=== PATIENT | male | born 2000 | race American Indian/Alaskan Native ===

== ENCOUNTER 2019-03-19 17:11 | Emergency (ER) | payer SELFPAY ==
--- NOTE | 2019-03-19 17:39 | Emergency Department Report ---
Blank Doc - Documentation Documentation: pt states he is not circumcised and states he had a ripping sensation that occ urred a month ago states he has noticed blood occurred during intercourse no dysuria no penile discharge no testicular pain no testicular edema no PMHx no allergies to medications non smoker non drinker no drug use
[2019-03-19 18:59] LABS: Bilirubin,Urine NEG (Negative); Blood,Urine NEG (Negative); Color,Urine Yellow (Yellow); Mucus,Urine 2+ /HPF; Protein,Urine <15 mg/dL mg/dL (Negative); Urobilinogen,Urine < 2.0 mg/dL (<2.0)
--- NOTE | 2019-03-19 21:36 | Emergency Department Report ---
ED General Adult HPI - General Chief complaint: Recheck/Abnormal Lab/Rx Stated complaint: GENTIAL PROBLEMS Time Seen by Provider: 03/19/19 17:35 Source: patient Mode of arrival: Ambulatory Limitations: No Limitations - History of Present Illness Initial comments: 19-year-old -[place] male to emergency department complaining of a possible in contact with the female stated that she had herpes. He noticed a tearing to his penile region which she would like to have looked at because he thinks it could be a herpes lesion. Also would like some information on where he can go to get circumcised. He denies any penile discharge. Reports no testicular swelling or pain. No abdominal pain Radiation: non-radiation Improves with: none Worsens with: none - Related Data Allergies Allergy/AdvReac Type Severity Reaction Status Date / Time No Known Allergies Allergy Unverified 03/19/19 17:12 ED Review of Systems ROS: Stated complaint: GENTIAL PROBLEMS Other details as noted in HPI Constitutional: denies: chills, fever Eyes: denies: eye pain, eye discharge, vision change ENT: denies: ear pain, throat pain Respiratory: denies: cough, shortness of breath, wheezing Cardiovascular: denies: chest pain, palpitations Endocrine: no symptoms reported Gastrointestinal: denies: abdominal pain, nausea, diarrhea Genitourinary: denies: urgency, dysuria, frequency, discharge, testicular pain, testicular mass Musculoskeletal: denies: back pain, joint swelling, arthralgia Skin: denies: rash, lesions Neurological: denies: headache, weakness, paresthesias Psychiatric: denies: anxiety, depression Hematological/Lymphatic: denies: easy bleeding, easy bruising ED Past Medical Hx - Past Medical History Previous Medical History?: No - Surgical History Past Surgical History?: No - Social History Smoking Status: Never Smoker Substance Use Type: None ED Physical Exam - General Limitations: No Limitations General appearance: alert, in no apparent distress - Head Head exam: Present: atraumatic, normocephalic - Eye Eye exam: Present: normal appearance, PERRL, EOMI. Absent: scleral icterus, conjunctival injection, periorbital swelling Pupils: Present: normal accommodation - ENT ENT exam: Present: normal exam, mucous membranes moist - Neck Neck exam: Present: normal inspection, full ROM - Respiratory Respiratory exam: Present: normal lung sounds bilaterally. Absent: respiratory distress, wheezes, rales, rhonchi, chest wall tenderness, accessory muscle use - Cardiovascular Cardiovascular Exam: Present: regular rate, normal rhythm. Absent: systolic murmur, diastolic murmur, rubs, gallop - GI/Abdominal GI/Abdominal exam: Present: soft, normal bowel sounds - Rectal Rectal exam: Present: deferred - exam: Absent: circumcision (uncircumcised male with a small tear noted. No visible herpetic lesions or ulcerative lesions ) - Extremities Exam Extremities exam: Present: normal inspection - Back Exam Back exam: Present: normal inspection - Neurological Exam Neurological exam: Present: alert, oriented X3 - Psychiatric Psychiatric exam: Present: normal affect, normal mood - Skin Skin exam: Present: warm, dry, intact, normal color. Absent: rash ED Course Vital Signs 03/19/19 17:37 Temperature 98.3 F Pulse Rate 68 Respiratory 16 Rate Blood Pressure 117/66 [Left] O2 Sat by Pulse 100 Oximetry ED Medical Decision Making - Medical Decision Making [id number] male with possible STD exposure. No discharge noted. No herpetic lesions on examination discussed with him locations where he could get full STD evaluation. He was more concerned on finding someone to circumcise him as he was on as he is uncircumcised. Critical care attestation.: If time is entered above; I have spent that time in minutes in the direct care of this critically ill patient, excluding procedure time. ED Disposition Clinical Impression: Possible exposure to STD Disposition: DC-01 TO HOME OR SELFCARE Is pt being admited?: No Does the pt Need Aspirin: No Condition: Stable Instructions: Sexually Transmitted Diseases (ED), Safe Sex (ED) Referrals: [facility] [place] [Outside] - 3-5 Days HARTFORD JAMAL DAVIS MD [Primary Care Provider] - 3-5 Days
[2019-03-19 22:05] VITALS: BP 114/70
== END 2019-03-19 22:10 | disposition home or self-care (01) ==
LOC: ED 17:11
DX: R10.2 Pelvic and perineal pain (principal); Z20.2 Contact with and (suspected) exposure to infections with a predominantly sexual mode of transmission
CPT/HCPCS: 81001; 99283